=== PATIENT | male | born 1965 | race Caucasian/White ===

== ENCOUNTER → 2025-07-06 08:02 | Outpatient (REF) | payer BC, SELFPAY | LOC: RAD 08:02 | PROVIDERS: ATTENDING PHYSICIAN Internal Medicine | DX: R93.89 Abnormal findings on diagnostic imaging of other specified body structures (principal); I65.23 Occlusion and stenosis of bilateral carotid arteries; Z86.69 Personal history of other diseases of the nervous system and sense organs | CPT/HCPCS: 70498; Q9967 ==

== ENCOUNTER 2025-08-22 11:28 | Emergency (ER) | payer BC, SELFPAY ==
[2025-08-22 11:41] VITALS: BP 143/70
[2025-08-22 12:23] VITALS: BMI 25.5
--- NOTE | 2025-08-22 13:35 | ED.GENMED ---
History of Present Illness
General
Chief Complaint: Musculo-Skeletal Complaint
Source: patient
Exam Limitations: none
Time Seen by Provider: 08/22/25 12:25
Nursing documentation reviewed up to this point in time: agreed with
History of Present Illness
History of Present Illness:
see MDM
Review of Systems
Review of Systems
Allergies reviewed?: Yes
All Other Systems: Not applicable
Course
Orders/Labs/Results
Orders:
Orders
08/22/25 12:07
Prothrombin Time Urgent
08/22/25 12:29
Tetanus/Diphth/Acelpertussis [Adacel] 0.5 ml IM .ONCE ONE
CR Knee - Left 4 Or More View* Urgent
Comment:
Reason For Exam: L anterior knee pain/swelling after striking box
Vital Signs
Initial and Last Documented VS:
Initial Vital Signs
Temp Pulse Resp BP Pulse Ox
36.7 C 55 20 143/70 96
08/22/25 11:41 08/22/25 11:41 08/22/25 11:41 08/22/25 11:41 08/22/25 11:41
Last Documented Vital Signs
Temp Pulse Resp BP Pulse Ox
36.7 C 55 20 143/70 96
08/22/25 11:41 08/22/25 11:41 08/22/25 11:41 08/22/25 11:41 08/22/25 11:41
MDM/Problems Addressed
Differential Diagnosis Includes:
see MDM
MDM/Problems Addressed:
Note:
CHIEF COMPLAINT(S)
left knee injury with concern for fracture.
HISTORY OF PRESENT ILLNESS
The patient is a 60-year-old male who presented with a left knee injury sustained after hitting it against a wooden box this morning. The patient reported localized pain and was able to walk on the foot despite the injury. The patient has h/o factor
V leiden is on warfarin therapy, with a recent International Normalized Ratio (INR) check conducted prior to todays incident. The patient was unsure of the exact INR value. He has been instructed to maintain his INR levels between two and three. He
admitted to occasional alcohol use and stated he tries to limit his intake due to the anticoagulant therapy. For pain relief, he mentioned having taken acetaminophen. Physical examination revealed tenderness, particularly around the tibial area and
patellar tendon, but without major deformities, allowing movement at the hinge joint. Due to the potential for bleeding complications as a result of anticoagulation, the patient was informed of the signs of compartment syndrome, such as numbness,
tingling, and marked swelling, which would require immediate medical attention.
SOCIAL DETERMINANTS AFFECTING HEALTH
The patient reported occasional alcohol consumption, which he monitors due to his anticoagulation therapy.
REVIEW OF SYSTEMS
- Musculoskeletal: Pain in the right foot following trauma. Able to walk on the affected foot.
- Neurological: No numbness or tingling reported at the time of examination.
- General: Takes acetaminophen for pain management.
PHYSICAL EXAM
Nursing notes reviewed and vital signs reviewed.
- Musculoskeletal: Tenderness around the tibial area and patellar tendon. No obvious deformities. Full range of motion at the hinge joint.
PROBLEM LIST
Acute:
- Right foot injury, possible fracture.
- Potential bleeding risk due to being on anticoagulation therapy.
PLAN
- Obtain a radiographic image of the foot to check for fracture.
- Monitor for signs of compartment syndrome due to anticoagulation, such as numbness, tingling, and intense swelling.
- Administer tetanus vaccination if the patient is unsure of his immunization history, especially given the trauma.
- Educate the patient on maintaining INR within the therapeutic range and modifying alcohol intake while on warfarin.
DIFFERENTIAL DIAGNOSIS
The Differential Diagnosis includes, in no particular order and is not limited to:
1. Fracture of the foot or toe
2. Soft tissue contusion
3. Compartment syndrome
4. Ligamentous injury
5. Tendonitis
6. Plantar fasciitis
7. Gout flare
8. Peripheral neuropathy secondary to anticoagulant
9. Bone bruise
10. Stress fracture due to impact
60 y/o M
hit L anterior knee against wooden box this am
small wound, hematoma
swelled up quickly, due to warfarin use
able to walk and straight leg raise and extend at the knee
xrays orderd to eval for fx
indep reviewed, neg
adacel ordered
wound superficial irrigated, bacitracin
terrance wrap
f/u pcp prn
*Pulse Oximetry
SaO2: 96
Oxygen Mode of Delivery: Room air
ED Attending Note
-
Portions of this chart may have been created with voice recognition software.� Occasional wrong word or��sound alike� substitutions may have occurred due to the inherent limitations of voice recognition software.
Discharge Plan
Departure
Discharge Problem:
Contusion of knee, Abrasion of knee, left
Instructions: Contusion (DC), Wound care - ED (DC)
Referrals:
Sandra Carbajal MD [Family Provider, Internal Medicine] - Follow up in 2-3 days
Activity Restrictions/Additional Instructions:
Your x-ray did not show any fracture. You have a hematoma and an abrasion to your knee. Keep clean washing twice a day, apply ointment and a Band-Aid and then use the Terrance wrap for compression. Return for severe swelling, numbness tingling or
weakness to the leg or foot, foot drop, color change etc.
Interventions
Interventions:
*General Assessment Last Done: 08/22/25 11:41
ED-Musculoskeletal Assessment Last Done: 08/22/25 12:23
Discharge Date and Time
Print Language: FAROESE
[2025-08-22] MEDS: ADACEL 0.5 ML IM (13:52)
[2025-08-22 14:19] LABS: INR 3.16; PT 32.3 Sec (11.4-14.6)
[2025-08-22 15:08] VITALS: BP 141/77
== END 2025-08-22 15:09 | disposition home or self-care (01) ==
LOC: EMR 11:28
PROVIDERS: EMERGENCY PHYSICIAN Emergency Medicine; FAMILY PHYSICIAN Internal Medicine
DX: S80.02XA Contusion of left knee, initial encounter (principal); S80.212A Abrasion, left knee, initial encounter; D68.51 Activated protein C resistance; Z23 Encounter for immunization; Z79.01 Long term (current) use of anticoagulants; W22.8XXA Striking against or struck by other objects, initial encounter
CPT/HCPCS: 99284; 90471; 73564; 85610; 90715

== ENCOUNTER 2025-09-02 16:13 | Emergency (ER) | payer BC, SELFPAY ==
[2025-09-02 16:23] VITALS: BP 109/75
[2025-09-02 17:47] LABS: INR 3.49; PT 34.8 Sec (11.4-14.6)
--- NOTE | 2025-09-02 19:13 | ED.GENMED ---
History of Present Illness
General
Chief Complaint: DVT/Possible Blood Clot
Source: patient and family
Time Seen by Provider: 09/02/25 16:54
History of Present Illness
History of Present Illness:
Note:
CHIEF COMPLAINT(S)
Left leg swelling and redness following an injury.
HISTORY OF PRESENT ILLNESS
The patient is a 60-year-old male with a past history of significant blood clotting issues, currently on Coumadin therapy due to Factor V Leiden deficiency, who presents with swelling and redness of the left leg. The patient reports that two weeks
ago, he injured his left leg during a box jump exercise at a gym. Initially, the swelling subsided, but it has resurfaced and worsened since yesterday. The patient attempted use of compression to manage the swelling, but it persisted.
He denies new medications and reports his last International Normalized Ratio (INR) check was 3.1, conducted recently. There is concern for a potential new deep vein thrombosis (DVT) or the presence of a hematoma secondary to the injury, with
further possibility of infection due to observed redness and swelling around the area, potentially involving the prepatellar bursa.
PAST MEDICAL AND SURGICAL HISTORY
Factor V Leiden deficiency with a history of previous deep vein thrombosis managed with Coumadin.
CHRONIC MEDICAL CONDITIONS SIGNIFICANTLY AFFECTING CARE
The patient has Factor V Leiden deficiency requiring long-term anticoagulation with Coumadin.
MEDICATIONS
Coumadin (Warfarin)
REVIEW OF SYSTEMS
- Skin: Redness and swelling noted in the left leg.
- Musculoskeletal: Swelling and tenderness in the left lower extremity, particularly around the knee to foot area.
- Hematologic: No new bruising reported outside the area of injury.
PHYSICAL EXAM
General: Alert, no acute distress.
Skin: There is an area of fluctuance overlying the tibial tuberosity on the left that is suspicious for hematoma. There is a scab just distal to this lesion that is healing. There is a very small amount of redness around the scab. There is
ecchymosis noted distally into the, around the ankle and dorsally bilaterally on the leg mild to moderate edema of the left lower extremity. He has normal perfusion to bilateral lower extremities
Head: Normocephalic, atraumatic.
Neck: Supple, trachea midline.
Eye, Ears, Nose, Mouth, and Throat: Oral mucosa is moist.
Cardiovascular: Heart regular without murmurs, warm extremities with normal perfusion.
Respiratory: Respirations are non-labored.
Musculoskeletal: Mild diffuse swelling of the left lower extremity
Neurological: Alert and oriented to person, place, time, and situation, No focal neurological deficit observed.
Psychiatric: Cooperative, appropriate mood & affect.
PROBLEM LIST
- Acute: Left leg swelling and suspected prepatellar bursitis.
- Chronic: Factor V Leiden deficiency with anticoagulation management.
PLAN
1. Obtain a left leg ultrasound to rule out acute DVT.
2. Check INR levels to ensure anticoagulation is within therapeutic range.
3. Prescribe an antibiotic with instructions for use only if worsening redness and signs of infection persist.
4. Monitor for changes in swelling, redness, or pain. Provide education on signs of complications related to anticoagulation.
DIFFERENTIAL DIAGNOSIS
The Differential Diagnosis includes, in no particular order and is not limited to:
1. Deep Vein Thrombosis (DVT)
2. Hematoma secondary to trauma
3. Prepatellar Bursitis
4. Cellulitis
5. Septic arthritis
6. Soft tissue injury
7. Peripheral edema
8. Psoriatic arthritis
9. Lymphangitis
10. Bakers cyst rupture
Disposition:
SUMMARY OF ENCOUNTER
The patient, a 60-year-old male with a history of Factor V Leiden deficiency and on Coumadin therapy, presented with swelling and redness in his left leg following an injury two weeks ago. Upon examination, there was redness and fluctuance with
healing ecchymosis from the knee to the foot. The patients recent International Normalized Ratio (INR) was 3.49. Given the swelling and ecchymosis, it is suspected that the symptoms are related to a healing hematoma with some blood dissipation under
the skin. There is also mild redness around the wound. Antibiotic treatment was not immediately started, but a prescription was provided with instructions to fill it if redness worsens.
PLAN
Continue monitoring the wound over the next 48 hours. If redness or swelling worsens, fill the prescribed antibiotic (cephalexin) for one week. Follow up on INR levels with the primary care physician. Apply warm compresses to the area to aid in
healing and possibly avoid antibiotic use.
PATIENT EDUCATION AND COUNSELING
The patient was advised to monitor the wound closely for any increase in redness. Additionally, the importance of applying warm compresses to the affected area was emphasized to aid healing. The patient was informed to watch for any progression of
symptoms and the circumstances under which the prescribed antibiotic should be filled.
FOLLOW-UP INSTRUCTIONS
The patient should follow up with their primary care physician for INR monitoring and return to the emergency department if symptoms progress or worsen.
MEDICATION RECONCILIATION
- Cephalexin prescribed with instructions to fill if redness or signs of infection worsen.
MEDICAL DECISION MAKING
1. Number and Complexity of Problems Addressed: Chronic conditions affecting care include Factor V Leiden deficiency, managed with Coumadin. Differential diagnosis includes deep vein thrombosis, hematoma secondary to trauma, prepatellar bursitis,
cellulitis, and soft tissue injury.
2. Data:
Category 1:
- Non-emergency department records reviewed including recent INR results.
- Lab test reviewed: INR is 3.49.
- Further imaging considered: Left leg ultrasound to rule out DVT, but not discussed in this note.
Category 2:
- No additional historians.
3. Risk:
Prescription medication was prescribed for potential infection management. Consideration of admission/observation was discussed due to the complexity and risk of the patients presenting complaints, but outpatient management was deemed appropriate in
this instance based on the stability of the patients condition.
DIAGNOSIS
- Hematoma, healing (ICD-10: S80.11XA - Contusion of knee and lower leg, initial encounter)
- Prepatellar bursitis (ICD-10: M70.42 - Prepatellar bursitis, left knee)
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
Past History
Past History
ED Past Medical History: Other (Factor V Leiden, DVT, PE)
Phy Exam
Physical Exam
Physical Exam:
.
Course
Orders/Labs/Results
Orders:
Orders
09/02/25 16:24
US Periph Venous LOWER Ext LT Urgent
Comment: hx of clotting disorder
Reason For Exam: injury, swelling, redness, pain
09/02/25 17:31
Prothrombin Time Urgent
Abnormal Lab Results
09/02/25
17:31
PT 34.8 H Sec
(11.4-14.6)
Vital Signs
Initial and Last Documented VS:
Initial Vital Signs
Temp Pulse Resp Pulse Ox
98.2 F 53 18 99
09/02/25 16:22 09/02/25 16:22 09/02/25 16:22 09/02/25 16:22
Last Documented Vital Signs
Temp Pulse Resp BP Pulse Ox
98.2 F 53 18 109/75 99
09/02/25 16:22 09/02/25 16:22 09/02/25 16:22 09/02/25 16:23 09/02/25 19:14
*Pulse Oximetry
SaO2: 99
Oxygen Mode of Delivery: Room air
Patient hypoxic: no
*Critical Care Note
Total Time (30-74mins, 75-104mins- exclusive of procedures): Not Applicable
ED Attending Note
-
Portions of this chart may have been created with voice recognition software.� Occasional wrong word or��sound alike� substitutions may have occurred due to the inherent limitations of voice recognition software.
Discharge Plan
Departure
Patient Disposition: Home (Routine Discharge)
Date of Disposition: 09/02/25
Time of Disposition: 19:24
Patient with high blood pressure during this ER visit?: No
Discharge Problem:
Hematoma
Instructions: Hematoma
Prescriptions:
New
cephalexin 500 mg capsule
500 mg PO TID 7 Days Qty: 21 0RF
Referrals:
Sandra Carbajal MD [Family Provider, Internal Medicine]
Activity Restrictions/Additional Instructions:
Return immediately for increased redness, increased swelling, shortness of breath or any other concerns. Please have your INR followed by your doctor as discussed.
Interventions
Interventions:
*Risk Screen - Suicide Last Done: 09/02/25 16:23
*General Assessment Last Done: 09/02/25 16:23
*Neglect/Abuse Screening Last Done: 09/02/25 16:23
*ED COVID-19 Vaccine History Last Done: 09/02/25 16:23
*ED Influenza Vaccine History Last Done: 09/02/25 16:23
ED-Peripheral Vascular Assessment Last Done: 09/02/25 17:33
Discharge Date and Time
Print Language: CITIZEN OF [place]
== END 2025-09-02 19:54 | disposition home or self-care (01) ==
LOC: EMR 16:13
PROVIDERS: EMERGENCY PHYSICIAN Emergency Medicine; FAMILY PHYSICIAN Internal Medicine
DX: S80.12XA Contusion of left lower leg, initial encounter (principal); X58.XXXA Exposure to other specified factors, initial encounter; Y93.A9 Activity, other involving cardiorespiratory exercise; Y92.39 Other specified sports and athletic area as the place of occurrence of the external cause; D68.51 Activated protein C resistance; Z79.01 Long term (current) use of anticoagulants; Z86.718 Personal history of other venous thrombosis and embolism; Z86.711 Personal history of pulmonary embolism
CPT/HCPCS: 99284; 85610; 93971